=== PATIENT | male | born 1950 | race Two or more races ===

== ENCOUNTER 2020-01-06 18:23 | Emergency (ER) | payer SELFPAY ==
[~2020-01-06] VITALS: Ht 167.6 cm; Wt 73.0 kg
[2020-01-06 18:34] VITALS: BP 128/84
[2020-01-06] MEDS ORDERED: FLUORESCEIN SOD 1 MG TEST STRIP LEFTEYE ONE (21:00)
[2020-01-06] MEDS ORDERED: TETRACAINE HCL 0.5% OPTH(EYE) SOLN 4ML LEFTEYE ONE (21:00)
== END 2020-01-06 21:49 | disposition home or self-care (01) ==
LOC: ER 18:23
DX: H57.12 Ocular pain, left eye (principal)